=== PATIENT | female | born 1975 | race Caucasian/White ===

== ENCOUNTER 2024-08-14 08:46 | Emergency (ER) | payer SELFPAY ==
[2024-08-14 09:04] VITALS: TEMP 98.6; BMI 22.4
[2024-08-14 12:05] LABS: BASO % 0.3 % (0-2.0); EOS % 0.2 % (0-4.5); HEMATOCRIT 38.5 % (32.4-45.2); LYMPH % 19.9 % (8-40); MCH 29.4 pg (25.7-33.7); MCHC 33.7 g/dl (32.0-36.0); MEAN CELL VOLUME 87.1 fl (80-96); MEAN PLT VOLUME 13.3 fl (7.5-11.1); MONO % 14.1 % (3.8-10.2); NEUT % 65.5 % (42.8-82.8); PLATELET COUNT 101 10^3/uL (134-434); RBC 4.41 M/mm3 (3.60-5.2); RDW 14.5 % (11.6-15.6); WHITE BLOOD COUNT 8.4 K/mm3 (4.0-10.0)
[2024-08-14 12:12] LABS: INR 1.17 (0.83-1.09); PROTHROMBIN TIME (PATIENT) 13.2 SEC (9.7-13.0)
[2024-08-14 12:15] LABS: ACTIVATED PTT 31.9 SECONDS (25.2-36.5)
[2024-08-14 12:21] LABS: EPI CELLS 9 /uL (0-25.1); HYALINE CASTS 0 /uL (0-3.1); URINE APPEARANCE CLOUDY; URINE BACTERIA 7085 /uL (0-1359); URINE BILIRUBIN NEGATIVE (NEGATIVE); URINE COLOR DK YELLOW; URINE GLUCOSE (UA) NEGATIVE (NEGATIVE); URINE KETONE 1+ (NEGATIVE); URINE LEUK ESTERASE 2+ (NEGATIVE); URINE NITRITE POSITIVE (NEGATIVE); URINE PROTEIN 1+ (NEGATIVE); URINE RBC 31 /uL (0-23.9); URINE WBC 1604 /uL (0-25.8)
[2024-08-14 12:22] LABS: PLATELET ESTIMATE SLT DECREASE
[2024-08-14 12:31] LABS: ALBUMIN 3.5 g/dl (3.4-5.0); BLOOD UREA NITROGEN 8.1 mg/dL (7-18); CALCIUM 9.2 mg/dL (8.5-10.1)
[2024-08-14 12:35] LABS: CREATININE 0.7 mg/dL (0.55-1.3)
[2024-08-14 12:36] LABS: BILIRUBIN,TOTAL 0.5 mg/dL (0.2-1); TOT PROT 7.6 g/dl (6.4-8.2)
[2024-08-14 16:01] VITALS: BP 112/70; PULSE 86; RESP 16
== END 2024-08-14 16:01 | disposition home or self-care (01) ==
LOC: JER 08:46
DX: N12 Tubulo-interstitial nephritis, not specified as acute or chronic (principal); R10.11 Right upper quadrant pain; R10.31 Right lower quadrant pain; R30.0 Dysuria; R11.0 Nausea
CPT/HCPCS: 36415; 74177-TC; 80053; 81003; 82010; 83690; 84702; 85025; 85610; 85730; 86850; 86900; 86901; 87086; 87186; 99285-25